=== PATIENT | male | born 2000 | race African-American/Black ===

== ENCOUNTER 2021-03-10 15:12 | Inpatient (IN) ==
[2021-03-10 17:34] LABS: Urine Amorphous Crystals Present (Absent); Urine Bacteria 1+ (Absent); Urine Red Blood Cell Trace(0-2/hpf) (Absent); Urine Squamous Epithelial Cell Present (Absent); Urine White Blood Cell Trace(0-5/hpf) (Absent)
[2021-03-10 17:46] LABS: Urine Benzodiazepine Screen None Detected (None Detect); Urine Cannabinoids Screen None Detected (None Detect); Urine Opiates Screen None Detected (None Detect)
[2021-03-10 18:16] LABS: Urine Appearance Clear; Urine Color Yellow; Urine Specific Gravity 1.032 (1.002-1.030)
[2021-03-10 18:17] LABS: Urine Ketones Trace (Negative); Urine Protein 1+(30 mg/dL) (Negative); Urine Urobilinogen Negative (Negative); Urine pH 5 (5-9)
[2021-03-10 18:18] LABS: Urine Bilirubin Negative (Negative); Urine Blood Negative (Negative); Urine Glucose Negative (Negative); Urine Nitrite Negative (Negative)
[2021-03-10 23:39] LABS: ABS Lymphocytes 1.8 10^3/ul (1.0-4.8); ABS Monocytes 0.6 10^3/ul (0-0.8); ABS Neutrophils 1.6 10^3/ul (1.5-7.7); Eosinophil % 1.1 %; Hematocrit 40 % (42-52); Hemoglobin 13.7 g/dL (14.0-18.0); Lymphocyte % 44.5 %; Mean Corpuscular HGB Conc 34 g/dL (31-36); Mean Corpuscular Hemoglobin 26 pg (27-31); Mean Corpuscular Volume 77 fL (80-94); Mean Platelet Volume 6.8 fL (7.4-10.4); Nucleated Red Blood Cells % 0.3; Platelet Count 316 10^3/uL (150-450); Red Blood Count 5.27 10^6 /uL (4.18-5.48); Red Cell Distribution Width 14 % (10-15)
[2021-03-11 00:02] LABS: ALT 14 U/L (7-52); AST 20 U/L (13-39); Acetaminophen < 15 mcg/mL; Albumin/Globulin Ratio 1.2 (1-3); Alcohol, S < 13 mg/dL (<13); Alkaline Phosphatase 84 U/L (35-149); Anion Gap 7 mmol/L (2-11); Blood Urea Nitrogen 13 mg/dL (6-24); CO2 Carbon Dioxide 27 mmol/L (22-32); Calcium 9.2 mg/dL (8.6-10.3); Chloride 105 mmol/L (101-111); Globulin 3.3 g/dL (2-4); Glucose 97 mg/dL (70-100); Potassium 3.7 mmol/L (3.5-5.0); Salicylate < 2.50 mg/dL (<30); Sodium 139 mmol/L (135-145); Total Protein 7.3 g/dL (6.4-8.9)
[2021-03-11 05:47] LABS: Rapid COVID-19 Molecular Undetected (Undetected)
[2021-03-11] MEDS ORDERED: Al Hydrox/Mg Hydrox/Simet LIQ 30 ML UDC PO PRN (06:23)
[2021-03-11] MEDS: Vitamin THERAPEUTIC TAB PO SCH (08:57)
[2021-03-11 11:42] LABS: TSH Ultra Thyroid Stim Horm 0.89 mcIU/mL (0.34-5.60)
[2021-03-12] MEDS: Vitamin THERAPEUTIC TAB PO SCH (09:09)
[2021-03-12 09:30] VITALS: BP 129/61
[2021-03-14 17:03] LABS: Hb A 63.6 % (95.8-98.0); Hb A2 2.9 % (2.0-3.3); Variant 1 33.5 Hb S % (0.0)
[2021-03-16 10:07] LABS: Sickle Solubility, B Positive
== END 2021-03-12 14:00 | disposition home or self-care (01) | DRG 754 ==
LOC: ED 15:12 → BSU 03-11 05:39
PROVIDERS: ADMIT Psychiatry & Neurology Psychiatry; ATTEND Psychiatry & Neurology Psychiatry